=== PATIENT | male | born 1955 | race Caucasian/White ===

== ENCOUNTER 2021-07-03 12:03 | Emergency (ER) | payer MEDICARE, MEDICAID ==
[~2021-07-03] VITALS: Ht 185.4 cm; Wt 90.7 kg
[2021-07-03 12:05] VITALS: BP_SYST 143
--- NOTE | 2021-07-03 12:05 | NUR ---
Patient triaged and placed in waiting room. VSS and patient appears in no acute distress at this time. Accompanied by SELF, awaiting available bed, and MD notified of need for MSE.
--- NOTE | 2021-07-03 13:11 | NUR ---
DR MARTINEZ OUT TO TRIAGE ROOM FOR EVALUATION
[2021-07-03] MEDS ORDERED: HYDR-3917 PO (16:42)
[2021-07-03] MEDS ORDERED: IBUP-1971 PO (16:42)
[2021-07-03] MEDS ORDERED: KETOROLAC TROMETHAMINE 60 MG/2 ML VIAL IM ONE (16:45)
--- NOTE | 2021-07-03 17:49 | NUR ---
KNEE IMOBLIZER RIGHT LEG
--- NOTE | 2021-07-03 17:50 | NUR ---
Patient given written and verbal discharge instructions and verbalizes understanding. ESTHELA DEE MD discussed with patient the results and treatment provided. Patient in stable condition. ID arm band removed. Rx of MOTRIN, HYDROCODONE given. Patient educated on pain management and to follow up with PMD. Pain Scale 0. Opportunity for questions provided and answered. Medication side effect fact sheet provided.
== END 2021-07-03 17:50 | disposition home or self-care (01) ==
LOC: SED 12:03
DX: M25.461 Effusion, right knee (principal); M25.561 Pain in right knee; Z79.899 Other long term (current) drug therapy
CPT/HCPCS: 29505; 73564; 96372; 99283; J1885